=== PATIENT | male | born 1995 | race American Indian/Alaskan Native ===

== ENCOUNTER 2019-05-01 12:15 | Emergency (ER) | payer SELFPAY ==
[2019-05-01 12:28] VITALS: BP 140/84
--- NOTE | 2019-05-01 12:40 | Emergency Department Report ---
Blank Doc - Documentation Documentation: 24-year-old male that presents with left middle finger redness and pain. stated cut accidentally to left middle finger with plastic. This initial assessment/diagnostic orders/clinical plan/treatment(s) is/are subject to change based on patient's health status, clinical progression and re- assessment by fellow clinical providers in the ED. Further treatment and workup at subsequent clinical providers discretion. Patient/guardians urged not to elope from the ED as their condition may be serious if not clinically assessed and managed. Initial orders include: 1- Patient sent to [facility] for further evaluation and treatment 2- xrays to r/o foreign body
--- NOTE | 2019-05-01 13:28 | XRay Report ---
LEFT FINGER 3 VIEW(S) INDICATION / CLINICAL INFORMATION: middle finger pain r/o foreign bdoy COMPARISON: None available. FINDINGS: BONES / JOINT(S): No acute fracture or subluxation. No significant arthritis. SOFT TISSUES: No significant abnormality. Specifically, no radiopaque embedded foreign body. Signer Name: Josue Reyes MD Signed: 05/01/2019 1:23 PM Workstation Name: [id number]
--- NOTE | 2019-05-01 13:46 | Emergency Department Report ---
ED General Adult HPI - General Chief complaint: Extremity Injury, Upper Stated complaint: INJURED FINGER/CUT INFECTED Time Seen by Provider: 05/01/19 12:39 Source: patient Mode of arrival: Ambulatory Limitations: No Limitations - History of Present Illness Initial comments: This is a 24-year-old male with no prior medical edition who presents to the ED complaining of left middle finger pain 2 weeks. Patient states 2 weeks ago he accident in the cut his finger with a plastic material causing a small laceration that is now healed and closed. Patient states that pain is radiating from his finger down his arm. Patient denies any other injury trauma to the finger hand. He denies fever or chills/nausea vomiting or loss of sensation. - Related Data Previous Rx's Medication Instructions Recorded Last Taken Type Docusate Sodium [Colace] 100 mg PO BID #60 capsule 03/08/14 Unknown Rx Clindamycin [Clindamycin CAP] 300 mg PO Q8H #21 cap 05/01/19 Unknown Rx Ibuprofen [Motrin] 600 mg PO Q8H PRN #30 tablet 05/01/19 Unknown Rx Allergies Allergy/AdvReac Type Severity Reaction Status Date / Time No Known Allergies Allergy Verified 12/11/13 14:40 ED Review of Systems ROS: Stated complaint: INJURED FINGER/CUT INFECTED Other details as noted in HPI Comment: All other systems reviewed and negative ED Past Medical Hx - Past Medical History Previous Medical History?: No - Surgical History Past Surgical History?: No - Social History Smoking Status: Never Smoker Substance Use Type: Alcohol, Marijuana - Medications Home Medications: Home Medications Medication Instructions Recorded Confirmed Last Taken Type Docusate Sodium [Colace] 100 mg PO BID #60 capsule 03/08/14 Unknown Rx Clindamycin [Clindamycin CAP] 300 mg PO Q8H #21 cap 05/01/19 Unknown Rx Ibuprofen [Motrin] 600 mg PO Q8H PRN #30 tablet 05/01/19 Unknown Rx ED Physical Exam - General Limitations: No Limitations General appearance: alert, in no apparent distress - Head Head exam: Present: atraumatic, normocephalic - Eye Eye exam: Present: normal appearance - ENT ENT exam: Present: mucous membranes moist - Neck Neck exam: Present: normal inspection - Respiratory Respiratory exam: Present: normal lung sounds bilaterally. Absent: respiratory distress - Cardiovascular Cardiovascular Exam: Present: regular rate, normal rhythm. Absent: systolic murmur, diastolic murmur, rubs, gallop - GI/Abdominal GI/Abdominal exam: Present: soft, normal bowel sounds - Rectal Rectal exam: Present: deferred - Extremities Exam Extremities exam: Present: normal inspection, full ROM, tenderness (to palpation of the left third finger in between the PIP and DIP joint), normal capillary refill. Absent: joint swelling - Back Exam Back exam: Present: normal inspection - Neurological Exam Neurological exam: Present: alert, oriented X3 - Psychiatric Psychiatric exam: Present: normal affect, normal mood - Skin Skin exam: Present: warm, dry, intact, normal color. Absent: rash ED Course Vital Signs 05/01/19 12:27 Temperature 98.4 F Pulse Rate 97 H Respiratory 18 Rate Blood Pressure 140/84 O2 Sat by Pulse 100 Oximetry ED Medical Decision Making - Radiology Data Radiology results: report reviewed, image reviewed LEFT FINGER 3 VIEW(S) INDICATION / CLINICAL INFORMATION: middle finger pain r/o foreign bdoy COMPARISON: None available. FINDINGS: BONES / JOINT(S): No acute fracture or subluxation. No significant arthritis. SOFT TISSUES: No significant abnormality. Specifically, no radiopaque embedded foreign body. Signer Name: Josue Reyes MD Signed: 05/01/2019 1:23 PM Workstation Name: [id number] Transcribed By: MITCHELL Dictated By: Josue Reyes MD Electronically Authenticated By: Josue Reyes MD Signed Date/Time: 05/01/19 1323 - Medical Decision Making 24-year-old male presents with pain to the left middle finger secondary to the abrasion is mildly infected. x-rays were obtained x-rays are negative Discussed findings with the patient. Discussed the patient to follow-up with primary care physician in 3-5 days. Discussed the patient to complete antibiotic dose Vital signs are normal patient has no distress. Critical care attestation.: If time is entered above; I have spent that time in minutes in the direct care of this critically ill patient, excluding procedure time. ED Disposition Clinical Impression: Cellulitis of finger of left hand, Finger abrasion, infected Disposition: - TO HOME OR SELFCARE Is pt being admited?: No Does the pt Need Aspirin: No Condition: Stable Instructions: Abrasion (ED), Cellulitis (ED) Additional Instructions: Make sure to follow up with the primary care physician as discussed. Take all your medications as you've been prescribed. If you have any worsening symptoms or develop new symptoms please return to ED immediately. Prescriptions: Clindamycin [Clindamycin CAP] 300 mg PO Q8H #21 cap Ibuprofen [Motrin] 600 mg PO Q8H PRN #30 tablet PRN Reason: Pain Referrals: [facility] [Outside] - 3-5 Days [facility] [Outside] - 3-5 Days Forms: Work/School Release Form(ED) Time of Disposition: 13:59
[2019-05-01] MEDS ORDERED: TETANUS,DIPH,PERTUSS(ACELL) VACCINE 0.5 ML SYRINGE IM ONE (13:52)
== END 2019-05-01 14:10 | disposition home or self-care (01) ==
LOC: ED 12:15
DX: S60.413A Abrasion of left middle finger, initial encounter (principal); L03.012 Cellulitis of left finger; F12.10 Cannabis abuse, uncomplicated; X58.XXXA Exposure to other specified factors, initial encounter; Y93.89 Activity, other specified; Y92.89 Other specified places as the place of occurrence of the external cause; Y99.8 Other external cause status
CPT/HCPCS: 90471; 90715; 99283

== ENCOUNTER 2020-09-05 18:41 | Emergency (ER) | payer SELFPAY ==
--- NOTE | 2020-09-05 19:53 | Emergency Department Report ---
ED General Adult HPI - General Chief complaint: Back Pain/Injury Stated complaint: BREAKOUT/BACK PAIN Time Seen by Provider: 09/05/20 19:42 Source: patient Mode of arrival: Ambulatory Limitations: No Limitations - History of Present Illness Initial comments: Patient is a 25-year-old male presents emergency room complaints of upper back pain that began 5 days ago. He states the night before he had been smoking marijuana and he woke up with the pain the next day. He states his pain is worse with taking a deep breath, leaning forward, laughing, movement. he states it was also uncomfortable with trying to sleep. He states that a couple of days ago he was having chills and sweats and had been taking some aspirin and vitamin C and those symptoms have resolved and he no longer has a fever. He denies any cough, nausea, vomiting, diarrhea, shortness of breath, leg swelling, chest pain, hemoptysis. No past medical history. No allergies to medications. He endorses marijuana use. He denies any known sick contacts or recent travel. - Related Data Previous Rx's Medication Instructions Recorded Last Taken Type Docusate Sodium [Colace] 100 mg PO BID #60 capsule 03/08/14 Unknown Rx Clindamycin [Clindamycin CAP] 300 mg PO Q8H #21 cap 05/01/19 Unknown Rx Ibuprofen [Motrin] 600 mg PO Q8H PRN #30 tablet 05/01/19 Unknown Rx Naproxen [EC-Naproxen] 375 mg PO BID PRN #14 tablet. 09/05/20 Unknown Rx methOCARBAMOL [Robaxin TAB] 500 mg PO BID PRN #14 tab 09/05/20 Unknown Rx Allergies Allergy/AdvReac Type Severity Reaction Status Date / Time No Known Allergies Allergy Verified 09/05/20 19:33 ED Review of Systems ROS: Stated complaint: BREAKOUT/BACK PAIN Other details as noted in HPI Comment: All other systems reviewed and negative ED Past Medical Hx - Past Medical History Previous Medical History?: No - Surgical History Past Surgical History?: No - Social History Smoking Status: Never Smoker Substance Use Type: None - Medications Home Medications: Home Medications Medication Instructions Recorded Confirmed Last Taken Type Docusate Sodium [Colace] 100 mg PO BID #60 capsule 03/08/14 Unknown Rx Clindamycin [Clindamycin CAP] 300 mg PO Q8H #21 cap 05/01/19 Unknown Rx Ibuprofen [Motrin] 600 mg PO Q8H PRN #30 tablet 05/01/19 Unknown Rx Naproxen [EC-Naproxen] 375 mg PO BID PRN #14 tablet. 09/05/20 Unknown Rx methOCARBAMOL [Robaxin TAB] 500 mg PO BID PRN #14 tab 09/05/20 Unknown Rx ED Physical Exam - General Limitations: No Limitations General appearance: alert, in no apparent distress - Head Head exam: Present: atraumatic, normocephalic - Eye Eye exam: Present: normal appearance - ENT ENT exam: Present: mucous membranes moist - Respiratory Respiratory exam: Present: normal lung sounds bilaterally. Absent: respiratory distress, wheezes, rales, rhonchi, stridor, chest wall tenderness, accessory muscle use, decreased breath sounds, prolonged expiratory - Cardiovascular Cardiovascular Exam: Present: regular rate, normal rhythm, normal heart sounds. Absent: systolic murmur, diastolic murmur, rubs, gallop - Back Exam Back exam: Present: normal inspection, full ROM. Absent: paraspinal tenderness, vertebral tenderness - Neurological Exam Neurological exam: Present: alert, oriented X3 - Psychiatric Psychiatric exam: Present: normal affect, normal mood - Skin Skin exam: Present: warm, dry ED Course Vital Signs 09/05/20 09/05/20 19:36 21:17 Temperature 98.6 F Pulse Rate 86 65 Respiratory 18 Rate Blood Pressure 132/86 Blood Pressure 134/84 [Right] O2 Sat by Pulse 100 99 Oximetry ED Medical Decision Making - Lab Data Vital Signs 09/05/20 09/05/20 19:36 21:17 Temperature 98.6 F Pulse Rate 86 65 Respiratory 18 Rate Blood Pressure 132/86 Blood Pressure 134/84 [Right] O2 Sat by Pulse 100 99 Oximetry - EKG Data EKG shows normal: sinus rhythm, axis, intervals, QRS complexes Rate: normal - EKG Data 09/05/20 20:11 ST elevation which appears most consistent with normal early repolarization No STEMI No signs of RI depression to suggest pericarditis - Radiology Data Radiology results: report reviewed, image reviewed Ordering Physician: ROSEMARY SQUIRES Date of Service: 09/05/20 Procedure(s): XR chest routine 2V Accession Number(s): [id number] cc: ROSEMARY SQUIRES Fluoro Time In Minutes: CHEST 2 VIEWS INDICATION: pleuritic pain. COMPARISON: none FINDINGS: Support devices: None. Heart: Within normal limits. Lungs: No acute air space or interstitial disease. Pleura: No significant pleural effusion. No pneumothorax. Additional findings: None. IMPRESSION: 1. No acute findings. Signer Name: Nilesh Myers MD Signed: 09/05/2020 8:29 PM Workstation Name: [id number] Transcribed By: ALISTAIR Dictated By: Nilesh Myers MD Electronically Authenticated By: Nilesh Myers MD Signed Date/Time: 09/05/202028 DD/ 27 TD/TT: - Medical Decision Making Patient is a 25-year-old male presents emergency room complaints of upper back pain that began 5 days ago. He states the night before he had been smoking marijuana and he woke up with the pain the next day. He states his pain is worse with taking a deep breath, leaning forward, laughing, movement. he states it was also uncomfortable with trying to sleep. He states that a couple of days ago he was having chills and sweats and had been taking some aspirin and vitamin C and those symptoms have resolved and he no longer has a fever. He denies any cough, nausea, vomiting, diarrhea, shortness of breath, leg swelling, chest pain, hemoptysis. No past medical history. No allergies to medications. He endorses marijuana use. He denies any known sick contacts or recent travel. Vitals are normal. No abnormality on physical examination as documented in chart. Presented clear bilaterally, no wheezing, no rales, no rhonchi. PERC criteria negative for PE, PE very unlikely. EKG with normal early repolarization, no STEMI, no signs of pericarditis. Chest x-ray with no acute process, no signs of pneumonia, no signs of PTX. Symptoms most likely consistent with muscle strain. Patient given prescription for naproxen and Robaxin. Advised patient Please take medication as prescribed as needed. Do not drive or operate machinery while taking muscle relaxer Robaxin. May use ice pack, heating pad, rest, Epson salt bath. Follow-up with your primary care doctor for reexamination. Return to emergency room for new or worsening symptoms. - Differential Diagnosis Muscle strain, PTX, PNA, pericarditis, viral URI, PE Critical care attestation.: If time is entered above; I have spent that time in minutes in the direct care of this critically ill patient, excluding procedure time. ED Disposition Clinical Impression: Upper back pain Disposition: - TO HOME OR SELFCARE Is pt being admited?: No Does the pt Need Aspirin: No Condition: Stable Instructions: Muscle Strain, [id number] Additional Instructions: Please take medication as prescribed as needed. Do not drive or operate machinery while taking muscle relaxer Robaxin. May use ice pack, heating pad, rest, Epson salt bath. Follow-up with your primary care doctor for reexamination. Return to emergency room for new or worsening symptoms. Prescriptions: Naproxen [EC-Naproxen] 375 mg PO BID PRN #14 tablet. PRN Reason: pain methOCARBAMOL [Robaxin TAB] 500 mg PO BID PRN #14 tab PRN Reason: pain Referrals: [facility] [Provider Group] - 2-3 Days YVETTE KEYS MD [Staff Physician] - 2-3 Days PRIMARY MD LAURA [Primary Care Provider] - 2-3 Days Time of Disposition: 21:11 Print Language: FRENCH
--- NOTE | 2020-09-05 20:33 | XRay Report ---
CHEST 2 VIEWS INDICATION: pleuritic pain. COMPARISON: none FINDINGS: Support devices: None. Heart: Within normal limits. Lungs: No acute air space or interstitial disease. Pleura: No significant pleural effusion. No pneumothorax. Additional findings: None. IMPRESSION: 1. No acute findings. Signer Name: Nilesh Myers MD Signed: 09/05/2020 8:29 PM Workstation Name: [id number]
[2020-09-05 21:18] VITALS: BP 134/84
== END 2020-09-05 21:17 | disposition home or self-care (01) ==
LOC: ED 18:41
DX: M54.6 Pain in thoracic spine (principal); Z79.899 Other long term (current) drug therapy
CPT/HCPCS: 71046; 93005; 99283

== ENCOUNTER 2020-09-11 11:08 | Emergency (ER) | payer SELFPAY ==
[2020-09-11 11:24] VITALS: BP 141/87
--- NOTE | 2020-09-11 11:54 | Emergency Department Report ---
Chief Complaint: Allergic Reaction Stated Complaint: BACK/CHEST PAIN/BREAK OUT - HPI History of Present Illness: 25-year-old -[place] male presents back to the emergency room after being seen on 09/05/2020 for back pain and rash. Patient states that he never filled the prescriptions and returns back for evaluation. Patient states that his rash is all over. Does not complain that it itches no trouble swallowing or trouble breathing no chest pain no shortness of breath or difficulty breathing. Denies any eye swelling. Patient states he never followed up with outpatient referrals. - Exam Vital Signs: Vital Signs 09/11/20 11:21 Temperature 98.2 F Pulse Rate 77 Respiratory 18 Rate Blood Pressure 141/87 O2 Sat by Pulse 100 Oximetry Physical Exam: Alert and oriented x3 no acute distress nontoxic in appearance Chest effortless breathing no accessory muscles use Back full range of motion Ambulatory without difficulties Skin fine papular rash nonerythematous nonedematous no concerns for cellulitis no concerns of Avendano-Nelson or infectious rash. MSE screening note: Focused history and physical exam performed. Due to findings the following was ordered: 25-year-old -[place] male presents back to the emergency room after being seen on 09/05/2020 for back pain and rash. Patient states that he never filled the prescriptions and returns back for evaluation. Patient states that his rash is all over. Does not complain that it itches no trouble swallowing or trouble breathing no chest pain no shortness of breath or difficulty breathing. Denies any eye swelling. Patient states he never followed up with outpatient referrals. Discussed with patient that he needs to take the medication. He was cleared for any cardiac or pneumonia at his last visit. He states that he does not have any difficulty breathing. ED Disposition for MSE Disposition: MED SCREENING EXAM-LEFT Is pt being admited?: No Does the pt Need Aspirin: No Condition: Stable Additional Instructions: He has had a negative cardiac and pulmonary work-up. You need to take your medications that was prescribed to you and to follow-up with a provider.
== END 2020-09-11 12:02 | disposition left against medical advice (07) ==
LOC: ED 11:08
DX: M54.9 Dorsalgia, unspecified (principal); Z53.21 Procedure and treatment not carried out due to patient leaving prior to being seen by health care provider

== ENCOUNTER 2020-11-30 03:06 | Emergency (ER) | payer SELFPAY ==
[2020-11-30 03:28] VITALS: BP 128/73
[2020-11-30] MEDS ORDERED: TETRACAINE 0.5% OPHTH SOLN 4ML OU PRN (09:35)
[2020-11-30] MEDS ORDERED: FLUORESCEIN 1 MG STRIP OP ONE (09:35)
--- NOTE | 2020-11-30 09:48 | Emergency Department Report ---
ED General Adult HPI - General Chief complaint: Eye Problems Stated complaint: PAIN/REDNESS LFT EYE IRRITATION Time Seen by Provider: 11/30/20 08:51 Source: patient Mode of arrival: Ambulatory Limitations: No Limitations - History of Present Illness Initial comments: 25-year-old -[place] male patient presents with complaints of left pain and swelling x 1 day. He states he is unsure if he got something in his eye, but denies any direct injury, vision changes, or contact lens wearing. Patient states the pain occurs mainly when he closes his eye and does admit to some sensitivity to light. He describes the pain as a scratchy feeling. -: Sudden - Related Data Previous Rx's Medication Instructions Recorded Last Taken Type Docusate Sodium [Colace] 100 mg PO BID #60 capsule 03/08/14 Unknown Rx Clindamycin [Clindamycin CAP] 300 mg PO Q8H #21 cap 05/01/19 Unknown Rx Ibuprofen [Motrin] 600 mg PO Q8H PRN #30 tablet 05/01/19 Unknown Rx Naproxen [EC-Naproxen] 375 mg PO BID PRN #14 tablet.dr 09/05/20 Unknown Rx methOCARBAMOL [Robaxin TAB] 500 mg PO BID PRN #14 tab 09/05/20 Unknown Rx Erythromycin [Erythromycin Ophth 1 cm OU Q3H 7 Days #1 tube 11/30/20 Unknown Rx Oint] Allergies Allergy/AdvReac Type Severity Reaction Status Date / Time No Known Allergies Allergy Verified 09/05/20 19:33 ED Review of Systems ROS: Stated complaint: PAIN/REDNESS LFT EYE IRRITATION Other details as noted in HPI Constitutional: denies: fever Eyes: eye pain, other (Watering of left eye). denies: eye discharge, vision change Respiratory: denies: cough Neurological: denies: headache ED Past Medical Hx - Past Medical History Previous Medical History?: Yes Additional medical history: allergic reaction, Back pain - Surgical History Past Surgical History?: No - Social History Smoking Status: Never Smoker Substance Use Type: Marijuana - Medications Home Medications: Home Medications Medication Instructions Recorded Confirmed Last Taken Type Docusate Sodium [Colace] 100 mg PO BID #60 capsule 03/08/14 Unknown Rx Clindamycin [Clindamycin CAP] 300 mg PO Q8H #21 cap 05/01/19 Unknown Rx Ibuprofen [Motrin] 600 mg PO Q8H PRN #30 tablet 05/01/19 Unknown Rx Naproxen [EC-Naproxen] 375 mg PO BID PRN #14 tablet. 09/05/20 Unknown Rx methOCARBAMOL [Robaxin TAB] 500 mg PO BID PRN #14 tab 09/05/20 Unknown Rx Erythromycin [Erythromycin Ophth 1 cm OU Q3H 7 Days #1 tube 11/30/20 Unknown Rx Oint] ED Physical Exam - General Limitations: No Limitations General appearance: alert, in no apparent distress - Head Head exam: Present: atraumatic, normocephalic - Eye Eye exam: Present: PERRL, EOMI, conjunctival injection (Mild left), other (Mild left lower lid swelling noted without erythema; eyelids everted and swept-no foreign bodies noted; no corneal abrasion noted on fluorescein staining of the eye). Absent: scleral icterus - Neck Neck exam: Present: normal inspection - Respiratory Respiratory exam: Absent: respiratory distress - Cardiovascular Cardiovascular Exam: Present: regular rate - Neurological Exam Neurological exam: Present: alert, oriented X3, normal gait - Psychiatric Psychiatric exam: Present: normal affect, normal mood - Skin Skin exam: Present: warm, dry, intact, normal color. Absent: rash ED Course Vital Signs 11/30/20 03:26 Temperature 97.9 F Pulse Rate 71 Respiratory 18 Rate Blood Pressure 128/73 O2 Sat by Pulse 99 Oximetry ED Medical Decision Making - Medical Decision Making 25-year-old -[place] male patient presents with complaints of left pain and swelling x 1 day. He states he is unsure if he got something in his eye, but denies any direct injury, vision changes, or contact lens wearing. Patient states the pain occurs mainly when he closes his eye and does admit to some sensitivity to light. He describes the pain as a scratchy feeling. No corneal abrasion or foreign bodies noted in the left eye on exam. Will treat for conjunctivitis with erythromycin. Recommend follow-up with PCP in 3 days. Discussed signs and symptoms that should prompt immediate return to the emergency department in detail with patient who verbalized understanding. He is well-appearing, his vitals are within normal limits, he is stable for discharge home. Critical care attestation.: If time is entered above; I have spent that time in minutes in the direct care of this critically ill patient, excluding procedure time. ED Disposition Clinical Impression: Acute bacterial conjunctivitis of left eye Disposition: DC- TO HOME OR SELFCARE Is pt being admited?: No Condition: Stable Instructions: Bacterial Conjunctivitis, Adult Prescriptions: Erythromycin [Erythromycin Ophth Oint] 1 cm OU Q3H 7 Days #1 tube Referrals: PRIMARY CARE, [Primary Care Provider] - 3-5 Days [facility] [Provider Group] - 3-5 Days
== END 2020-11-30 10:21 | disposition home or self-care (01) ==
LOC: ED 03:06
DX: H11.9 Unspecified disorder of conjunctiva (principal); B96.89 Other specified bacterial agents as the cause of diseases classified elsewhere; Z98.890 Other specified postprocedural states; Z79.899 Other long term (current) drug therapy
CPT/HCPCS: 99283